=== PATIENT | female | born 1955 | race Hispanic/Latino ===

== ENCOUNTER 2017-09-30 13:10 | Inpatient (IN) | payer BC ==
--- NOTE | 2017-09-30 14:37 | ED PDOC ---
Arrival/HPI - General Chief Complaint: Weakness/Neurological Deficit Time Seen by Provider: 09/30/17 13:53 Historian: Patient - History of Present Illness Narrative History of Present Illness (Text): 09/30/17 14:33 Patient is a 62 yo female, family hx of cva/tia, presents to the Emergency Department after experiencing "leg weakness" while at work on Sunday TWO DAYS AGO, with "feeling like I was going to fall". States that she awoke Sunday morning "feeling fine", but while at work later in the day she acutely felt unsteady. No associated headache or visual symptoms, no chest pain or shortness of breath, no dizziness, no falls or injury. When she went home she started to develop numbness and weakness to her right hand. This numbness and weakness has been persistent all day yesterday until this morning. Symptoms for two days. She states she feels weaker in the right arm. Continues to deny headache, denies diplopia or blurred vision, denies neck pain or leg pain. Denies back pain or incontinence of urine or stool. Past Medical History - Infectious Disease Hx of Infectious Diseases: None - Reproductive Menopause: Yes - Cardiac Hx Hypertension: Yes - Psychiatric Hx Substance Use: No - Surgical History Hx Orthopedic Surgery: Yes - Anesthesia Hx Anesthesia: Yes Hx Anesthesia Reactions: No Family/Social History Family/Social History: CVA/TIA Smoking Status: Current Some Days Smoker Hx Alcohol Use: Yes Frequency of alcohol use: Daily Hx Substance Use: No Allergies/Home Meds Allergies/Adverse Reactions: Allergies Penicillins Allergy (Verified 09/30/17 13:47) RASH Home Medications: Home Meds Medication Instructions Recorded Confirmed Lisinopril [Zestril] 20 mg PO DAILY 09/30/17 09/30/17 Ranitidine HCl [Zantac] 150 mg PO DAILY 09/30/17 09/30/17 Simvastatin [Zocor] 10 mg PO DAILY 09/30/17 09/30/17 Review of Systems - Review of Systems Constitutional: Fatigue. absent: Fevers Eyes: absent: Vision Changes, Photophobia, Eye Pain ENT: absent: Hearing Changes Respiratory: absent: SOB, Cough Cardiovascular: absent: Chest Pain, Palpitations, Edema Gastrointestinal: absent: Abdominal Pain Genitourinary Female: absent: Dysuria, Frequency Musculoskeletal: absent: Back Pain, Neck Pain Skin: absent: Rash Neurological: Focal Weakness, Gait Changes, Disequilibrium. absent: Headache, Dizziness, Speech Changes, Facial Droop, Seizure Endocrine: absent: Polyuria Hemo/Lymphatic: absent: Easy Bleeding Psychiatric: absent: Depression Physical Exam Vital Signs Reviewed: Yes Vital Signs Temp Pulse Resp BP Pulse Ox 09/30/17 17:33 72 18 174/93 H 98 09/30/17 16:48 81 18 169/92 H 98 09/30/17 16:26 72 181/101 H 09/30/17 15:37 72 18 175/99 H 98 09/30/17 13:41 98.8 F 75 18 184/94 H 98 Temperature: Afebrile Appearance: Positive for: Uncomfortable Pain Distress: None Mental Status: Positive for: Alert and Oriented X 3 - Systems Exam Head: Present: Atraumatic Pupils: Present: PERRL Extroacular Muscles: Present: EOMI Mouth: Present: Moist Mucous Membranes Pharnyx: No: ERYTHEMA Neck: Present: Normal Range of Motion. No: Meningeal Signs, MIDLINE TENDERNESS Respiratory/Chest: Present: Clear to Auscultation. No: Respiratory Distress Cardiovascular: Present: Regular Rate and Rhythm, Murmurs Abdomen: No: Tenderness, Distention Back: No: CVA Tenderness, Midline Tenderness Upper Extremity: No: Cyanosis, Edema Lower Extremity: No: Edema, CALF TENDERNESS Neurological: Present: Other (dysmetria noted, no pronator drift in arms or legs , no facial droop, weaker grasp right hand when compared to left) Skin: Present: Warm Psychiatric: Present: Alert, Oriented x 3, Normal Insight, Normal Concentration , Normal Affect, Normal Mood Medical Decision Making ED Course and Treatment: Patient presents to ED with at least two day hx of symptoms. On exam, mild weakness to right grasp and some dysmetria. Sister is present states that her speech appears baseline currently. On exam there is some dysmetria. She denies headache or fever or visual symptoms. No syncope. No chest pain or shortness of breath. ASA ordered. No facial droop or slurred speech noted on re-exam. CT head reviewed, no bleeding, ? old lacunes. BP stable on re-evaluation. No arrhythmias noted on monitor. Denies chest pain or shortness of breath with serial exams. No obvious infiltrate on cxr. Radiology reading reviewed. PMD Dr. Zuniga notified, will consult on-call neurology. I discussed case with Dr. Lindquist, plan to admit, for serial neuro exams, MRI/MRA. Treatment plan reviewed with patient and family. Care turned over to admitting PMD at 1900. Patient not a tpa candidate as symptoms mild and present for over two days. No change in neuro exam on re-evaluation. No neck pain elicited on exam. No carotid bruits noted. - Lab Interpretations Lab Results: 09/30/17 15:00 09/30/17 15:00 Lab Results 09/30/17 16:15: Blood Type Confirm O POSITIVE 09/30/17 15:00: Blood Type O POSITIVE, Antibody Screen Negative, BBK History Checked No verified bt 09/30/17 15:00: Sodium 138, Potassium 4.2, Chloride 100, Carbon Dioxide 27, Anion Gap 16, BUN 16, Creatinine 1.0, Est GFR ( Amer) > 60, Est GFR (Non- Af Amer) 57, Random Glucose 91, Calcium 10.2, Total Bilirubin 0.6, AST 33, ALT 39, Alkaline Phosphatase 96, Troponin I < 0.01, Total Protein 7.4, Albumin 4.3, Globulin 3.1, Albumin/Globulin Ratio 1.4, Triglycerides 163 H, Cholesterol 187, LDL Cholesterol Direct 117, HDL Cholesterol 47 09/30/17 15:00: PT 11.1, INR 0.97, APTT 28.6 09/30/17 15:00: WBC 7.8, RBC 4.83, Hgb 16.2 H, Hct 49.0 H, MCV 101.4, MCH 33.5, MCHC 33.1, RDW 12.4, Plt Count 159, MPV 10.1, Gran % 63.0, Lymph % (Auto) 29.5, [place] % (Auto) 6.1 H, Eos % (Auto) 1.0 L, Baso % (Auto) 0.4, Gran # 4.93, Lymph # (Auto) 2.3, [place] # (Auto) 0.5, Eos # (Auto) 0.8 H, Baso # (Auto) 0.40, Neutrophils % (Manual) TEST NOT PERFORMED, Lymphocytes % (Manual) TEST NOT PERFORMED, Monocytes % (Manual) TEST NOT PERFORMED - RAD Interpretation Radiology Orders: 09/30/17 14:20 HEAD W/O CONTRAST [CT] Stat CHEST PORTABLE [RAD] Stat - Medication Orders Current Medication Orders: Discontinued Medications Aspirin (Aspirin) 325 mg PO STAT ONE Stop: 09/30/17 15:08 Last Admin: 09/30/17 16:26 Dose: 325 mg Clonidine HCl (Catapres) 0.1 mg PO ONCE STA Stop: 09/30/17 15:54 Last Admin: 09/30/17 16:26 Dose: 0.1 mg MAR Pulse and Blood Pressure Document 09/30/17 16:26 EQ (Rec: 09/30/17 16:26 EQ [facility] [place]-[id number]) Pulse Pulse Rate (60-90 beats/min) 72 Blood Pressure Blood Pressure (100/60-150/90 mm Hg) 181/101 NIHSS Scale ([place]) Time Performed: 14:35 - How Severe is the Stoke Baseline Level of Consciousness: 0=Alert LOC to Questions: 0=Both comments correct LOC to commands: 0=Obeys both correctly Best Gaze: 0=Normal Visual: 0=No visual loss Facial: 0=Normal Motor Arm - Left: 0=No drift Motor Arm - Right: 1=Drift noted before 10 sec Motor Leg - Left: 0=No drift Motor Leg - Right: 0=No drift Limb Ataxia: 1=Present Upper or Lower Sensory: 0=Normal Best Language: 0=No aphasia Dysarthia: 1=Mild to moderate slurring Extinction & Inattention (Neglect): 0=Normal, no object Score: 3 Risk Level: Minor Stroke Risk rTPA Inclusion/Exclusion - Refusal of Treatment Patient Refused Treatment: No - Inclusion Criteria for Altepase Patient is 18 years or Older: Yes The Clinical Diagnosis of Ischemic Stroke That is Causing a Potentially Disabling Neurological Deficit: Yes Time of Onset is Well Established to be Less Than 270 Minute Before Treatment Would Begin: No Risk/Benefit Discussed With Patient/Family Member Present: Yes - Warning to TPA With Conditions Condition: Stroke Serevity Too Mild Disposition/Present on Arrival - Present on Arrival Any Indicators Present on Arrival: No History of DVT/PE: No History of Uncontrolled Diabetes: No Urinary Catheter: No History of Decub. Ulcer: No History Surgical Site Infection Following: None - Disposition Have Diagnosis and Disposition been Completed?: Yes Diagnosis: CVA (cerebral vascular accident), Right hand weakness, Gait disturbance Disposition: HOSPITALIZED Disposition Time: 17:00 Patient Plan: Admission, Telemetry Patient Problems: Current Active Problems Problem Status Onset CVA (cerebral vascular accident) Acute Gait disturbance Acute Right hand weakness Acute Condition: SERIOUS
--- NOTE | 2017-09-30 14:45 | CT ---
PROCEDURE: CT HEAD WITHOUT CONTRAST. HISTORY: right sided weakness, gait disturbance COMPARISON: None available. TECHNIQUE: Axial computed tomography images were obtained through the head/brain without intravenous contrast. Radiation dose: Total exam DLP = 934.8 mGy-cm. This CT exam was performed using one or more of the following dose reduction techniques: Automated exposure control, adjustment of the mA and/or kV according to patient size, and/or use of iterative reconstruction technique. FINDINGS: HEMORRHAGE: No acute parenchymal, subarachnoid nor extra-axial hemorrhage. BRAIN: Mild diffuse/confluent chronic periventricular white matter ischemic changes with age indeterminate small ischemic changes scattered about the deep and subcortical white matter both cerebral hemispheres. There also appear to be a few small chronic bilateral basal nuclei lacunar type infarcts. Note that the possibility of a small hyperacute infarct cannot be excluded. No obvious parenchymal nor extra-axial masses or collections seen on this noncontrast study Mild vascular calcifications VENTRICLES: No obstructive hydrocephalus. CALVARIUM: There are no acute calvarial fractures. PARANASAL SINUSES: Unremarkable as visualized. No significant inflammatory changes. MASTOID AIR CELLS: Unremarkable as visualized. No inflammatory changes. OTHER FINDINGS: None. IMPRESSION: No acute intracranial hemorrhage. Mild chronic periventricular white matter ischemic changes with scattered deep and subcortical age-indeterminate ischemic changes. There may also be a few scattered tiny chronic bilateral basal nuclei lacunar type infarcts.
[2017-09-30 15:27] LABS: HEMOGLOBIN 16.2 g/dL (12.0-16.0); RBC 4.83 10^6/uL (3.5-6.1); WHITE BLOOD COUNT 7.8 10^3/ul (4.5-11.0)
[2017-09-30 15:28] LABS: MEAN CELL VOLUME 101.4 fl (80.0-105.0); MEAN CORPUSCULAR HEMOGLOBIN 33.5 pg (25.0-35.0); MEAN CORPUSCULAR HGB CONC 33.1 g/dl (31.0-37.0); MEAN PLATELET VOLUME 10.1 fl (7.0-11.0); PLATELET COUNT 159 10^3/uL (120.0-450.0); RED CELL DISTRIBUTION WIDTH 12.4 % (11.5-14.5)
[2017-09-30 15:32] LABS: ALB/GLOB RATIO 1.4 (1.1-1.8); ALBUMIN 4.3 g/dL (3.0-4.8); ALT/SGPT 39 U/L (7-56); AST/SGOT 33 U/L (14-36); BLOOD UREA NITROGEN 16 mg/dL (7-21); CALCIUM 10.2 mg/dL (8.4-10.5); GFR AFRICAN-AMERICAN > 60; GFR NON-AFRICAN AMERICAN 57; HDL CHOLESTEROL 47 mg/dL (29-60); LYMPH % 29.5 % (22.0-35.0)
[2017-09-30 15:33] LABS: BASO % 0.4 % (0.0-3.0); MONO % 6.1 % (1.0-6.0)
[2017-09-30 15:34] LABS: EOS # 0.8 (0.0-0.7); GRAN # 4.93 (1.4-6.5); LYMPH # 2.3 (1.2-3.4); MONO # 0.5 (0.1-0.6)
[2017-09-30 15:40] LABS: INR 0.97 (0.93-1.08); PARTIAL THROMBOPLASTIN TIME 28.6 Seconds (25.1-36.5); PROTHROMBIN TIME 11.1 SECONDS (9.4-12.5)
[2017-09-30 15:43] LABS: LDL CHOLESTEROL 117 mg/dL (0-129)
[2017-09-30 15:46] LABS: TROPONIN I < 0.01 ng/mL
--- NOTE | 2017-09-30 16:37 | RAD ---
HISTORY: Code Stroke COMPARISON: No prior. FINDINGS: LUNGS: Minor left basilar atelectasis or scarring. . PLEURA: No significant pleural effusion identified, no pneumothorax apparent. CARDIOVASCULAR: Normal. OSSEOUS STRUCTURES: No significant abnormalities. VISUALIZED UPPER ABDOMEN: Normal. OTHER FINDINGS: None. IMPRESSION: Minor left basilar atelectasis or scarring.
[2017-09-30 21:42] VITALS: BMI 21.6
[2017-10-01 05:48] VITALS: O2SAT 96
--- NOTE | 2017-10-01 06:53 | CP.PCM.PN ---
Subjective - Date & Time of Evaluation Date of Evaluation: 10/01/17 Time of Evaluation: 06:51 - Subjective Subjective: Draft. Monitor showed rhythm in and out of NSR and junctional rhythm. Patient is asymptomatic. Trop <0.01. Rx, Observation. Objective - Vital Signs/Intake and Output Vital Signs (last 24 hours): Temp Pulse Resp BP Pulse Ox 98 F 69 20 122/72 96 10/01/17 05:46 10/01/17 05:46 10/01/17 05:46 10/01/17 05:46 10/01/17 05:46 Intake and Output: 09/30/17 10/01/17 18:59 06:59 Intake Total 360 Output Total 2 Balance 358 - Medications Medications: Current Medications Aspirin (Ecotrin) 81 mg PO DAILY ANNABELLE Atorvastatin Calcium (Lipitor) 10 mg PO DIN ANNABELLE Famotidine (Pepcid) 20 mg PO HS ANNABELLE Lisinopril (Zestril) 20 mg PO DAILY ANNABELLE - Labs Labs: PT 11.1 SECONDS (9.4-12.5) 09/30/17 15:00 INR 0.97 (0.93-1.08) 09/30/17 15:00 APTT 28.6 Seconds (25.1-36.5) 09/30/17 15:00
[2017-10-01 07:11] LABS: ALB/GLOB RATIO 1.2 (1.1-1.8); ALBUMIN 3.5 g/dL (3.0-4.8); ALT/SGPT 39 U/L (7-56); AST/SGOT 25 U/L (14-36); BLOOD UREA NITROGEN 16 mg/dL (7-21); CALCIUM 9.9 mg/dL (8.4-10.5); GFR AFRICAN-AMERICAN > 60; GFR NON-AFRICAN AMERICAN > 60; HDL CHOLESTEROL 39 mg/dL (29-60)
[2017-10-01 07:20] LABS: LDL CHOLESTEROL 105 mg/dL (0-129)
--- NOTE | 2017-10-01 09:25 | MRI ---
PROCEDURE: MRI BRAIN WITHOUT CONTRAST HISTORY: cva COMPARISON: None. TECHNIQUE: Multiplanar, multisequence MR images of the brain were obtained without intravenous contrast enhancement. FINDINGS: HEMORRHAGE: None DWI: No evidence of an acute or early subacute infarction. BRAIN PARENCHYMA: No mass effect or edema. Numerous foci of white matter signal abnormality in the bailon radiata, centrum semiovale, frontal subcortical white matter as well as along the corpus callosum. VENTRICLES: Unremarkable. No hydrocephalus. CRANIUM: Unremarkable. ORBITS: Grossly unremarkable. PARANASAL SINUSES/MASTOIDS: Clear VASCULAR SYSTEM: Skull base flow voids intact. OTHER FINDINGS: None. IMPRESSION: Numerous foci of white matter signal abnormality in the bailon radiata, centrum semiovale, frontal subcortical white matter as well as along the corpus callosum. Findings are nonspecific but could represent a primary demyelinating process such as multiple sclerosis. Chronic microvascular ischemic disease is also considered. Please correlate clinically.
--- NOTE | 2017-10-01 09:56 | CARD ---
APPROVED REPORT EKG Measurement Heart [id number] <Conclusion> Normal sinus rhythm Normal ECG
--- NOTE | 2017-10-01 10:04 | HP ---
HISTORY OF PRESENT ILLNESS: The patient is 62-year-old known to me from office practice, came to Emergency Room with lower leg weakness that started 2 days ago. She stated her left leg was feeling as if she was going to fall. She was not able to put the pressure and has been feeling unsteady since Sunday. Denies any upper respiratory symptoms. No nausea or vomiting. No fever. No chills. No chest pain. No shortness of breath. The patient stated when she went home in the evening of Sunday, she started to have some numbness and weakness of her right hand. Did notice some difficulty for any words. PAST MEDICAL HISTORY: Significant for hypertension, hyperlipidemia, and active smoker. ALLERGIES: SHE IS ALLERGIC TO PENICILLIN. MEDICATIONS AT HOME: She is on simvastatin 10 mg daily, Zantac 150 twice a day, lisinopril 20 mg daily. SOCIAL HISTORY: She is a heavy smoker. She does socially drink. LABORATORY DATA: Recently had blood work done that showed abnormal LFTs probably secondary to alcohol use. PHYSICAL EXAMINATION GENERAL: She is awake, alert, oriented and able to communicate. VITAL SIGNS: She is afebrile. Pulse 81, respirations 18, blood pressure 151/84. LUNGS: Bilateral fair air flow. No rhonchi or crackles. HEART: S1 and S2 audible. ABDOMEN: Soft, nontender. No rebound. No guarding. NEUROLOGIC: She is awake and alert, able to communicate slightly with right upper and lower extremity weakness. Otherwise, she is able to move all extremities. LABORATORY DATA: WBC 7.8, hemoglobin 16, hematocrit 49, platelets of 159,000. PT 11.1, INR 0.97. Chemistry: Sodium 138, potassium 4.2, chloride 100, CO2 27, BUN 16, creatinine 1.0, blood sugar of 180. Triglycerides 153. CT scan of the head shows no acute intracranial hemorrhage. Mild chronic periventricular white matter ischemia, scattered deep and subcortical, age indeterminate ischemic changes. ASSESSMENT AND PLAN 1. Right-sided numbness, we will rule out cerebrovascular accident versus cervical radiculopathy. 2. Hypertension. 3. Active smoker. 4. Hyperlipidemia. PLAN: I will order MRI of the brain. I will order for carotid Doppler and also, order for an echocardiogram and start her antihypertensive, statin and aspirin. Follow up . Inderjit Zuniga MD [facility] # [id number]
[2017-10-01 15:00] VITALS: PULSE 70
--- NOTE | 2017-10-01 15:43 | CON ---
DATE: 10/01/2017 NEUROLOGY CONSULT CHIEF COMPLAINT: Right-sided weakness and unstable on the feet. HISTORY OF PRESENT ILLNESS: This is a 62-year-old woman who is a daily smoker with history of hypertension and hyperlipidemia, who presented to the hospital with poor balance and right-sided numbness and weakness, more weakness on the right hand/arm and has some dysarthria. She underwent a CAT scan of the head that showed no acute intracranial abnormalities, but her MRI of the brain was done which was apparently read as chronic ischemic changes with no acute infarct, but upon my read of the image, I saw that she had a mild left MCA territory infarct, small in nature which is secondary to diffuse atherosclerotic disease, which corresponds to her underlying dysarthria and right-sided numbness and right upper extremity weakness. She is an active smoker. She was previously on baby aspirin. An A1c was 5.7. LDL was 117. Total cholesterol was 187. Triglycerides 163. I discussed with the primary care physician in regards that she has an acute infarct in the left MCA territory. PAST MEDICAL HISTORY: Hypertension, hyperlipidemia, and active smoker. ALLERGIES: ALLERGIC TO PENICILLIN. SOCIAL HISTORY: She is a heavy smoker, socially drinks. No illicit drug use. MEDICATION: Reviewed by nurse's reconciliation sheet. REVIEW OF SYSTEMS: A 14-point review of systems is negative except as in the HPI. LABORATORY DATA: Sodium is 138, potassium 4.1, chloride 105, carbon dioxide 25, BUN of 16, creatinine 0.9, random glucose 83. Triglycerides 163, cholesterol 187, LDL is 117. A1c 5.7. PHYSICAL EXAMINATION: VITAL SIGNS: Temperature 97.2, pulse rate 74, blood pressure 150/84, respiratory rate of 20, oxygen saturation 96% by room air. GENERAL: The patient is sitting up in the bed, in no acute distress. HEENT: Head is atraumatic and normocephalic. PERRLA. Extraocular muscles are intact. NECK: Supple. No JVD. No adenopathy noted. LUNGS: Clear to auscultation. No adventitious sounds. HEART: S1, S2. Normal rate and rhythm. No murmurs, rubs, or gallops. ABDOMEN: Soft, nontender, nondistended. Bowel sounds present. EXTREMITIES: No clubbing. No cyanosis. Peripheral pulses are 2+ felt bilaterally. NEUROLOGIC: The patient is alert and oriented to person, place, month, and year. Speech has mild dysarthria but no aphasia. Cranial nerves II through XII are intact. Motor: Mild right finger tap weakness when compared to the left as well as 5-/5 right-sided weakness when compared to the left side. Sensory: Light touch, pinprick, proprioception, and vibration intact. DTRs are 2+ throughout. Gait is slightly wide based. She has slow finger tap on the right when compared to the left. ASSESSMENT AND PLAN: This is a 62-year-old woman, heavy smoker, history of hypertension, dyslipidemia, came in with some mild dysarthria and right-sided weakness, especially in the upper extremity, fond to have an acute left middle cerebral artery territory infarct, which is likely secondary to diffuse atherosclerotic disease given her risk factors of hypertension, smoking, and dyslipidemia. At this time, we recommend: 1. Place her on aspirin 81, Plavix 75, and atorvastatin of 80 mg for stroke prevention. 2. Carotid Doppler and awaiting the result. 3. PT and OT eval. 4. Counseled on smoking cessation to reduce one cigarette per day in order to quit. 5. Echocardiogram and continue current present medical management. Thanks for this consult. Brando Nash MD
--- NOTE | 2017-10-01 16:33 | US ---
PROCEDURE: Bilateral carotid artery duplex ultrasound HISTORY: Carotid stenosis syncope PHYSICIAN(S): Son Oconnell MD. TECHNIQUE: Duplex sonography and color-flow Doppler were used to evaluate the carotid bifurcations and limited segments of the vertebral arteries bilaterally. FINDINGS: There is mild smooth heterogeneous plaque noted at the carotid bifurcations bilaterally. The peak systolic velocity in the proximal right internal carotid artery is 68 cm/sec. This corresponds to a 20 to 39% proximal right ICA stenosis. Normal systolic velocities are noted in the proximal right external carotid artery. There is antegrade flow in the right vertebral artery. The peak systolic velocity in the proximal left internal carotid artery is 84 cm/sec. This corresponds to a 20 to 39% proximal left ICA stenosis. Normal systolic velocities are noted in the proximal left external carotid artery. There is antegrade flow in the left vertebral artery. IMPRESSION: 1. Bilateral 20-39% proximal ICA stenoses. 2. Antegrade flow in both vertebral arteries.
[2017-10-01 17:58] VITALS: BP 155/99; RESP 16; TEMP 98.4
--- NOTE | 2017-10-01 22:21 | PN ---
DATE: SUBJECTIVE: The patient is a 62-year-old, seen and examined. Patient states she was having intermittent right-sided numbness with leg weakness as if she is going to give in and she will fall, but yesterday prior to coming, it got worse, so she came to ER. PHYSICAL EXAMINATION: GENERAL: She is awake and alert, able to communicate. VITAL SIGNS: She is afebrile, pulse 73, respirations 20, blood pressure 143/99. LUNGS: Bilateral fair airflow. No rhonchi or crackle. HEART: S1 and S2 audible. ABDOMEN: Soft and nontender. No rebound, no guarding. NEUROLOGIC: She is awake, alert, oriented, able to communicate. She has very subtle right upper extremity weakness. Otherwise, she is able to ambulate. LABORATORY DATA: MRI of the brain done today shows numerous foci of the white matter signal abnormality in the bailon radiata, frontal subcortical white matter along corpus callosum. According to neurologist report, the patient was found to have acute left middle cerebral artery infarct secondary to atherosclerosis. Carotid Doppler shows bilateral 20-39% ICA stenosis. ASSESSMENT: 1. Left middle cerebral artery territory cerebrovascular accident with right-sided weakness and numbness. 2. Hyperlipidemia. 3. Hypertension. 4. Active smoker. PLAN: The patient will get PT, OT evaluation. We will continue her on aspirin. Will be given Plavix. Continue her on Lipitor. Discussed with neurologist. The patient wants to go home. We will monitor another 24 hours and possible discharge in a.m. Inderjit Zuniga MD
--- NOTE | 2017-10-02 14:12 | DS ---
ADDENDUM The patient is 62 years old who came with left upper extremity weakness and some weakness in her right lower extremity. Had MRI done that showed left middle cerebral territory CVA, doing well. Carotid Doppler is negative. Seen by neurologist. The patient is being discharged today. She will be discharged on statins 20 mg daily. She will be given aspirin 325 mg daily for a month and then, she will be also given Plavix 75 mg daily. She will resume her lisinopril and famotidine as needed and follow up in a week. Inderjit Zuniga MD
== END 2017-10-01 19:27 | disposition home or self-care (01) | DRG 65 ==
LOC: ED 13:10 → ERH 18:28 → 2RNO 20:27
PROVIDERS: ADMIT Internal Medicine; ATTEND Internal Medicine
DX: I63.512 Cerebral infarction due to unspecified occlusion or stenosis of left middle cerebral artery (principal); G81.91 Hemiplegia, unspecified affecting right dominant side; R29.703 NIHSS score 3; E78.5 Hyperlipidemia, unspecified; I10 Essential (primary) hypertension; F17.210 Nicotine dependence, cigarettes, uncomplicated; Z88.0 Allergy status to penicillin

== ENCOUNTER 2018-03-07 10:58 | Observation (INO) | payer BC ==
[2018-03-07 11:23] VITALS: BMI 21.1
--- NOTE | 2018-03-07 11:25 | ED PDOC ---
Arrival/HPI - General Time Seen by Provider: 03/07/18 11:12 Historian: Patient - History of Present Illness Narrative History of Present Illness (Text): 03/07/18 11:21 A 62 year old female, whose past medical history includes stroke with no residual deficits, presents to the emergency department for further evaluation s /p a syncopal episode. Patient states that she was at work this morning when she began to feel unwell and diaphoretic. She notes that she had several episodes of diarrhea at work and was taken home by her sister. At home, the patient experienced a witnessed syncopal episode which lasted a few seconds as per the patient's sister. The patient also notes left leg swelling. The patient denies fevers, chills, headache, dizziness, sore throat, cough, chest pain, shortness of breath, dyspnea on exertion, abdominal pain, vomiting, back pain, urinary changes or any other complaint. PMD: Dr. Zuniga Time/Duration: Prior to Arrival Symptom Onset: Sudden Symptom Course: Improving Activities at Onset: Rest, Light Context: Home, Work Past Medical History - Provider Review Nursing Documentation Reviewed: Yes - Infectious Disease Hx of Infectious Diseases: None - Cardiac Hx Hypertension: Yes - Musculoskeletal/Rheumatological Hx Falls: No - Psychiatric Hx Substance Use: No - Surgical History Hx Orthopedic Surgery: Yes - Anesthesia Hx Anesthesia: Yes Hx Anesthesia Reactions: No Family/Social History - Physician Review Nursing Documentation Reviewed: Yes Family/Social History: No Known Family HX Smoking Status: Current Some Days Smoker Hx Alcohol Use: Yes Hx Substance Use: No Allergies/Home Meds Allergies/Adverse Reactions: Allergies Penicillins Allergy (Verified 03/07/18 11:15) RASH Home Medications: Home Meds Medication Instructions Recorded Confirmed Lisinopril [Zestril] 20 mg PO DAILY 09/30/17 03/07/18 Ranitidine HCl [Zantac] 150 mg PO DAILY 09/30/17 03/07/18 Simvastatin [Zocor] 10 mg PO DAILY 09/30/17 03/07/18 Review of Systems - Physician Review All systems were reviewed & negative as marked: Yes - Review of Systems Constitutional: absent: Fevers, Night Sweats Respiratory: absent: SOB, Cough Cardiovascular: Syncope. absent: Chest Pain, CHANDRA Gastrointestinal: Diarrhea. absent: Abdominal Pain, Nausea, Vomiting Genitourinary Female: absent: Urine Output Changes Musculoskeletal: absent: Back Pain Neurological: absent: Headache, Dizziness Endocrine: Diaphoresis Physical Exam Vital Signs Reviewed: Yes Vital Signs Temp Pulse Resp BP Pulse Ox 03/07/18 13:14 65 18 99/54 L 96 03/07/18 12:32 82 18 84/51 L 95 03/07/18 11:11 97.9 F 88 18 117/68 100 Temperature: Afebrile Blood Pressure: Normal Pulse: Regular Respiratory Rate: Normal Appearance: Positive for: Well-Appearing, Non-Toxic, Comfortable Pain Distress: None Mental Status: Positive for: Alert and Oriented X 3 - Systems Exam Head: Present: Atraumatic, Normocephalic Pupils: Present: PERRL Extroacular Muscles: Present: EOMI Conjunctiva: Present: Normal Mouth: Present: Moist Mucous Membranes Neck: Present: Normal Range of Motion Respiratory/Chest: Present: Clear to Auscultation, Good Air Exchange. No: Respiratory Distress, Accessory Muscle Use Cardiovascular: Present: Regular Rate and Rhythm, Normal S1, S2. No: Murmurs Abdomen: No: Tenderness, Distention, Peritoneal Signs Back: Present: Normal Inspection Upper Extremity: Present: Normal Inspection. No: Cyanosis, Edema Lower Extremity: Present: Swelling (Left leg/calf swelling) Neurological: Present: GCS=15, CN II-XII Intact, Speech Normal Skin: Present: Warm, Dry, Normal Color. No: Rashes Psychiatric: Present: Alert, Oriented x 3, Normal Insight, Normal Concentration Medical Decision Making ED Course and Treatment: 03/07/18 11:26 Impression: A 62 year old female presents to the emergency room s/p syncopal episode at home this morning. Differential Diagnosis included but are not limited to: electrolyte abnormality vs. cardiac arrhythmia vs. TIA vs. DVT Plan: -- Head CT -- EKG -- Chest X-ray -- Labs -- Lower Extremity Ultrasound -- Reassess and disposition Progress Notes: 03/07/18 12:07 EKG shows NSR at 85bpm with sinus arrhythmia and new t wave flattening/ inversions in V4-v6 when compared to prior. 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 PROCEDURE: CT HEAD WITHOUT CONTRAST. Dictator : Son Petty MD Report Date : 03/07/2018 12:41:07 IMPRESSION: No intracranial mass, hemorrhage or evidence of acute infarct. Minimal chronic white matter ischemic change and small old bilateral basal ganglia lacunar infarcts. PROCEDURE: CHEST RADIOGRAPH, 1 VIEW Dictator : Son Petty MD Report Date : 03/07/2018 12:42:25 IMPRESSION: Mild pulmonary hyperinflation. Otherwise unremarkable. 03/07/18 13:53 03/07/18 11:52: Ultrasound wet read negative for dvt. Trop x 1 negative. Electrolytes grossly normal. Aspirin given in ED. Labs show leukocytosis but afebrile with no other SIRS criteria with normal cxray. UA negative. ? hemoconcentration. Case discussed in detail with Dr. Zuniga who accepts patient to her service. Dr. Merlos consulted as requested. - Lab Interpretations Lab Results: 03/07/18 12:35 03/07/18 12:35 Lab Results 03/07/18 12:35: Sodium 134, Potassium 4.3, Chloride 98, Carbon Dioxide 21, Anion Gap 19, BUN 22 H, Creatinine 1.0, Est GFR ( Amer) > 60, Est GFR ( Non-Af Amer) 57, Random Glucose 129 H, Calcium 9.5, Phosphorus 3.8, Magnesium 1.9, Total Bilirubin 0.6, AST 24, ALT 22, Alkaline Phosphatase 101, Total Creatine Kinase 43, Troponin I 0.02 D, Total Protein 7.4, Albumin 4.3, Globulin 3.1, Albumin/Globulin Ratio 1.4, Lipase 139 03/07/18 12:35: WBC 16.5 H D, RBC 4.94, Hgb 16.3 H, Hct 46.1, MCV 93.3 D, MCH 33.0, MCHC 35.4, RDW 13.9, Plt Count 205, MPV 9.5, Gran % 81.6 H, Lymph % (Auto ) 13.2 L, [place] % (Auto) 4.5, Eos % (Auto) 0.5 L, Baso % (Auto) 0.2, Gran # 13.47 H, Lymph # (Auto) 2.2, [place] # (Auto) 0.8 H, Eos # (Auto) 0.1, Baso # (Auto ) 0.04 I have reviewed the lab results: Yes - RAD Interpretation Radiology Orders: 03/07/18 11:18 CHEST ONE VIEW [RAD] Stat 03/07/18 11:19 HEAD W/O CONTRAST [CT] Stat DUPLEX LOWER EXTRM VEIN LEFT [US] Stat - EKG Interpretation Interpreted by ED Physician: Yes Type: 12 lead EKG - Medication Orders Current Medication Orders: Atorvastatin Calcium (Lipitor) 10 mg PO DAILY ANNABELLE Clopidogrel Bisulfate (Plavix) 75 mg PO DAILY [facility] Famotidine (Pepcid) 20 mg PO DAILY [facility] Dextrose/Sodium Chloride (Dextrose 5%/0.45% Ns 1000 Ml) 1,000 mls @ 75 mls/hr IV .[id number] [facility] Lisinopril (Zestril) 20 mg PO DAILY [facility] Discontinued Medications Aspirin (Aspirin Chewable) 324 mg PO STAT STA Stop: 03/07/18 12:41 Sodium Chloride (Sodium Chloride 0.9%) 1,000 mls @ 999 mls/hr IV .[id number] STA Stop: 03/07/18 13:46 - Scribe Statement The provider has reviewed the documentation as recorded by the Thierry Wick Provider Scribe Attestation: All medical record entries made by the Scribe were at my direction and personally dictated by me. I have reviewed the chart and agree that the record accurately reflects my personal performance of the history, physical exam, medical decision making, and the department course for this patient. I have also personally directed, reviewed, and agree with the discharge instructions and disposition. Disposition/Present on Arrival - Present on Arrival Any Indicators Present on Arrival: No History of DVT/PE: No History of Uncontrolled Diabetes: No Urinary Catheter: No History Surgical Site Infection Following: None - Disposition Have Diagnosis and Disposition been Completed?: Yes Diagnosis: Leukocytosis, Diarrhea, Syncope, Acute electrocardiogram changes Disposition: HOSPITALIZED Disposition Time: 13:11 Patient Plan: Observation Patient Problems: Current Active Problems Problem Status Onset Leukocytosis Acute Diarrhea Acute Syncope Acute Acute electrocardiogram changes Acute Condition: FAIR
--- NOTE | 2018-03-07 12:42 | CT ---
Date of service: 03/07/2018 PROCEDURE: CT HEAD WITHOUT CONTRAST. HISTORY: dizziness, syncope COMPARISON: 09/30/2017. TECHNIQUE: Axial computed tomography images were obtained through the head/brain without intravenous contrast. Radiation dose: Total exam DLP = 1007.79 mGy-cm. This CT exam was performed using one or more of the following dose reduction techniques: Automated exposure control, adjustment of the mA and/or kV according to patient size, and/or use of iterative reconstruction technique. FINDINGS: HEMORRHAGE: No intracranial hemorrhage. BRAIN: No mass effect or edema. Mild chronic periventricular white matter ischemic change. Bilateral small basal ganglia lacunar infarcts. No evidence of acute infarct. VENTRICLES: Unremarkable. No hydrocephalus. CALVARIUM: Unremarkable. PARANASAL SINUSES: Unremarkable as visualized. No significant inflammatory changes. MASTOID AIR CELLS: Unremarkable as visualized. No inflammatory changes. OTHER FINDINGS: None. IMPRESSION: No intracranial mass, hemorrhage or evidence of acute infarct. Minimal chronic white matter ischemic change and small old bilateral basal ganglia lacunar infarcts.
--- NOTE | 2018-03-07 12:44 | RAD ---
Date of service: 03/07/2018 PROCEDURE: CHEST RADIOGRAPH, 1 VIEW HISTORY: syncope COMPARISON: 09/30/2017 FINDINGS: LUNGS: No infiltrate. Mild pulmonary hyperinflation. This may reflect reactive airways disease or emphysema. PLEURA: No pneumothorax or pleural fluid seen. CARDIOVASCULAR: Normal. OSSEOUS STRUCTURES: No significant abnormalities. VISUALIZED UPPER ABDOMEN: Normal. OTHER FINDINGS: None. IMPRESSION: Mild pulmonary hyperinflation. Otherwise unremarkable.
[2018-03-07] MEDS ORDERED: Sodium Chloride 0.9% 1,000 ML IV STA (12:46)
[2018-03-07 12:49] LABS: BASO # 0.04 K/mm3 (0.0-2.0); BASO % 0.2 % (0.0-3.0); EOS # 0.1 (0.0-0.7); EOS % 0.5 % (1.5-5.0); GRAN # 13.47 (1.4-6.5); GRAN % 81.6 % (50.0-68.0); HEMOGLOBIN 16.3 g/dL (12.0-16.0); LYMPH # 2.2 (1.2-3.4); LYMPH % 13.2 % (22.0-35.0); MEAN CELL VOLUME 93.3 fl (80.0-105.0); MEAN CORPUSCULAR HGB CONC 35.4 g/dl (31.0-37.0); MEAN PLATELET VOLUME 9.5 fl (7.0-11.0); MONO # 0.8 (0.1-0.6); MONO % 4.5 % (1.0-6.0); RBC 4.94 10^6/uL (3.5-6.1); RED CELL DISTRIBUTION WIDTH 13.9 % (11.5-14.5); WHITE BLOOD COUNT 16.5 10^3/ul (4.5-11.0)
[2018-03-07 13:08] LABS: BLOOD UREA NITROGEN 22 mg/dL (7-21); CALCIUM 9.5 mg/dL (8.4-10.5); GFR AFRICAN-AMERICAN > 60; GFR NON-AFRICAN AMERICAN 57
[2018-03-07 13:09] LABS: ALB/GLOB RATIO 1.4 (1.1-1.8); ALBUMIN 4.3 g/dL (3.0-4.8); ALT/SGPT 22 U/L (7-56); AST/SGOT 24 U/L (14-36); LIPASE 139 U/L (23-300); TROPONIN I 0.02 ng/mL
[2018-03-07 14:11] LABS: URINE BILIRUBIN NEGATIVE (NEGATIVE); URINE BLOOD NEGATIVE (NEGATIVE); URINE GLUCOSE (UA) NEGATIVE (NEGATIVE); URINE LEUKOCYTE ESTERASE NEGATIVE Leu/uL (NEGATIVE); URINE PROTEIN NEGATIVE mg/dL (<30 mg/dL); URINE UROBILINOGEN 0.2 E.U./dL (<1 E.U./dL)
[2018-03-07 14:13] LABS: URINE APPEARANCE CLEAR (CLEAR); URINE COLOR YELLOW (YELLOW)
[2018-03-07] MEDS: Dextrose 5%/0.45% NS 1,000 ML IV SCH (14:50)
--- NOTE | 2018-03-07 18:06 | HP ---
HISTORY OF PRESENT ILLNESS: The patient is 62 years old known to me from office practice. Patient states she was at work, she started to feel weak, dizzy, lightheaded, and diaphoretic. She did not feel good. She called her friend to bring her home. She complained of having diarrhea today at work. She has couple of episodes. When she was at home waiting for her family to come, she passed out for few seconds. So family called ambulance and she was brought to emergency room. She does not have any fever or chills. No complaint of headache or dizziness. No history of nausea and does have diarrhea. No history of abdominal pain. Mild shortness of breath. No abdominal discomfort. No weakness or numbness. Does have generalized weakness. PAST MEDICAL HISTORY: Significant for; 1. Hypertension. 2. She was admitted in September, she had TIA at that point. 2. Hyperlipidemia. 3. Active smoker. 4. 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 ALLERGIES: SHE IS ALLERGIC TO PENICILLIN. MEDICATIONS AT HOME: She is on simvastatin 10 mg daily, Zantac 150 daily, lisinopril 20 mg daily, Plavix 75 daily, and aspirin 81 daily. SOCIAL HISTORY: She works and she does actively smoke. Socially drinks. REVIEW OF SYSTEMS: Significant for generalized weakness and fatigue. PHYSICAL EXAMINATION: VITAL SIGNS: She is afebrile, pulse 88, respirations 18, and blood pressure 170/68. LUNGS: Bilateral fair airflow. No rhonchi or crackles. HEART: S1, S2 audible. ABDOMEN: Soft, nontender. No rebound. No guarding. NEUROLOGIC: Patient is awake, alert, oriented, and communicative. LABORATORY DATA: Pending. She recently was admitted in 09/2017. At that point, MRI showed white matter signals along corpus callosum, all of them are nonspecific, but cannot rule out multiple sclerosis. ASSESSMENT: 1. Near syncope, rule out dehydration. 2. Hypertension. 3. Hyperlipidemia. 4. Bilateral basal nuclei lacunar infarct. PLAN: Patient is going to be in observation. Give her IV fluids. Cardiology consult and Neuro consult have been requested. Request for physical therapy. We will follow up electrolytes in a.m. Inderjit Zuniga MD
[2018-03-07] MEDS: Vancomycin 1gm in NS 250ml 1 GM/250 ML BAG IVPB SCH (18:15)
--- NOTE | 2018-03-07 18:54 | CARD ---
APPROVED REPORT Date of service: 03/07/2018 EKG Measurement Heart [id number] <Conclusion> Poor data quality, interpretation may be adversely affected Normal sinus rhythm with sinus arrhythmia Low voltage QRS Nonspecific T wave abnormality Abnormal ECG
[2018-03-07] MEDS ORDERED: Pneumococcal 23-Valent Vaccine IM ONE (19:56)
[2018-03-08 00:30] VITALS: O2SAT 98
--- NOTE | 2018-03-08 03:09 | CON ---
DATE: 03/07/2018 REASON FOR CONSULTATION: Followup syncope, cardiac evaluation. BRIEF CLINICAL HISTORY: This is a 62-year-old female with past medical history significant for hypertension, history of TIA, CVA in 09/2017, history of hip replacement last year, active tobacco abuse, active alcohol abuse, recently has a cellulitis, was on antibiotics for a week. Yesterday at work, patient had large bowel movement and about to pass out, so came to the emergency room. Denies any chest pain. Denies shortness of breath. Denies any palpitation prior to this episode. PAST MEDICAL HISTORY: Significant for TIA, CVA, hypertension, hyperlipidemia. PAST SURGICAL HISTORY: Significant for removal of left ovary and history of left hip surgery. ALLERGIES: TO PENICILLIN. SOCIAL HISTORY: Active tobacco abuse, active alcohol abuse, used to drink at least 12 to 16 can of beer every week, sometime 3 to 4 a day, sometime 6 to 10 can of beer on weekends. FAMILY HISTORY: Significant for coronary artery disease. CURRENT MEDICATIONS: Currently patient is taking simvastatin 10 mg daily, ranitidine 150 mg daily, lisinopril 20 mg daily. REVIEW OF SYSTEMS: As per HPI. Denies any chest pain, shortness of breath or any palpitation. PHYSICAL EXAMINATION: VITAL SIGNS: Temperature afebrile, heart rate 78, blood pressure 140/84. HEENT: PERRLA. Extraocular muscles intact. NECK: Supple. No carotid bruit or thyromegaly. CHEST: Clear to auscultation. HEART: S1 and S2 regular. ABDOMEN: Soft. EXTREMITIES: Clubbing and cyanosis negative. LABORATORY DATA: Blood workup as follows, WBC 16.5, hemoglobin 16.8, hematocrit 46.1, platelet count 205. Chemistry shows sodium 134, potassium 4.3, chloride 98, carbon dioxide 21, anion gap of 19, BUN 22, creatinine is 1. Troponin is 0.01. IMPRESSION: A 62-year-old female with past medical history significant for hypertension, hyperlipidemia, history of transient ischemic attack, history of atrial fibrillation during colonoscopy, since then patient has remained fairly stable. Family history is significant for coronary artery disease. Admitted also having diarrhea, also having one week of antibiotics, probably secondary to antibiotic induced diarrhea that causes near syncopal symptoms, because patient's large bowel movements feels very bad, though patient has multiple risk factors of coronary artery disease including alcohol abuse, tobacco abuse, family history of coronary artery disease. Suggest echo, lipid profile, TSH, hemoglobin A1c. Once the patient is stable, consider stress test as an outpatient. Thank you, Dr. Zuniga, for providing me the opportunity in taking care of the patient, Evy Norman. Oren Merlos MD cc: Inderjit Zuniga MD MTDD
[2018-03-08] MEDS: Vancomycin 1gm in NS 250ml 1 GM/250 ML BAG IVPB SCH ×2 (05:06→17:56)
[2018-03-08] MEDS: Dextrose 5%/0.45% NS 1,000 ML IV SCH (05:06)
[2018-03-08 06:55] LABS: BASO # 0.03 K/mm3 (0.0-2.0); BASO % 0.4 % (0.0-3.0); EOS # 0.1 (0.0-0.7); EOS % 1.7 % (1.5-5.0); GRAN # 4.65 (1.4-6.5); GRAN % 60.5 % (50.0-68.0); HEMOGLOBIN 13.4 g/dL (12.0-16.0); LYMPH # 2.5 (1.2-3.4); LYMPH % 32.1 % (22.0-35.0); MEAN CELL VOLUME 93.5 fl (80.0-105.0); MEAN CORPUSCULAR HEMOGLOBIN 32.1 pg (25.0-35.0); MEAN CORPUSCULAR HGB CONC 34.3 g/dl (31.0-37.0); MEAN PLATELET VOLUME 9.6 fl (7.0-11.0); MONO # 0.4 (0.1-0.6); MONO % 5.3 % (1.0-6.0); RBC 4.18 10^6/uL (3.5-6.1); WHITE BLOOD COUNT 7.7 10^3/ul (4.5-11.0)
[2018-03-08 07:07] LABS: ALB/GLOB RATIO 1.4 (1.1-1.8); ALBUMIN 3.6 g/dL (3.0-4.8); ALT/SGPT 30 U/L (7-56); AST/SGOT 19 U/L (14-36); BLOOD UREA NITROGEN 17 mg/dL (7-21); CALCIUM 9.1 mg/dL (8.4-10.5); GFR AFRICAN-AMERICAN > 60; GFR NON-AFRICAN AMERICAN > 60; HDL CHOLESTEROL 37 mg/dL (29-60)
[2018-03-08 07:17] LABS: LDL CHOLESTEROL 51 mg/dL (0-129)
--- NOTE | 2018-03-08 13:58 | PN ---
DATE: 03/08/2018 REASON FOR CONSULTATION AND FOLLOWUP: Syncope, cardiac evaluation. SUBJECTIVE: The patient denies any chest pain, shortness of breath, or any palpitation. PHYSICAL EXAMINATION: VITAL SIGNS: Temperature afebrile, heart rate 75, blood pressure 140/84. HEENT: PERRLA. Extraocular muscles intact. NECK: Supple. No carotid bruit or thyromegaly. CHEST: Clear to auscultation. HEART: S1 and S2, regular. ABDOMEN: Soft. EXTREMITIES: Clubbing and cyanosis negative. LABORATORY DATA: Blood workup as follows: WBC 7.7, hemoglobin 13.1, hematocrit 39.1, platelet count 182. Chemistry shows sodium 140, potassium 4.3, chloride 109, carbon dioxide 22, anion gap of 14, BUN 17, creatinine 0.8. IMPRESSION: A 62-year-old female with history of antibiotic, admitted with a large bowel movement and he had syncope and feeling very weak, cold and clammy, most likely secondary to dehydration and postural hypotension, active tobacco abuse. History of transient atrial fibrillation 6 years ago during colonoscopy. Denies any chest pain, shortness of breath, or any palpitation. Having a large bout of diarrhea. RECOMMENDATION: Echo to rule out any structural heart disease, check for orthostatic hypotension, history of cellulitis of lower extremity, on IV vancomycin. Lipid profile, TSH, hemoglobin A1c. For risk stratification, suggest a stress test as an outpatient. We will follow with you. Further recommendations will depend on the hospital course. We will get orthostatic blood pressure again today. If the orthostatics remain stable, we can discontinue telemetry. Thank you, Dr. Zuniga, for providing us the opportunity in taking of the patient, Evy Norman. Oren Merlos MD
--- NOTE | 2018-03-08 14:23 | CP.PCM.CON ---
History of Present Illness - History of Present Illness History of Present Illness: 62 year old female with PMH of CVA, HTN came in to [facility] after she developed a syncopal episode after being driven home from work, where she was feeling weak with diaphoresis. Prior to this she was feeling well. 2 weeks ago, the patient was given a week's worth of antibiotics for apparent cellulitis of the left lower extremity and it apparently got better. She had the syncopal episode and had one episode of loose bowel movement which did not recur. She denies headache or dizziness, no chest pain or palpitations, no fever or chills, no blurring of vision, no cough or rhinorrhea, no dysphagia, no abdominal pain, no dysuria. She initially came in with leukocytosis which has now resolved. She also has some pain and swelling of the left leg, and she denies trauma to the leg, no insect bites, no soaking of feet in water. Infectious diseases consult is requested to further evaluate and manage. Review of Systems - Review of Systems All systems: reviewed and no additional remarkable complaints except (as per HPI ) Past Patient History - Infectious Disease Hx of Infectious Diseases: None - Past Social History Smoking Status: Current Some Days Smoker - CARDIAC Hx Cardiac Disorders: Yes Hx Hypercholesterolemia: Yes Hx Hypertension: Yes - PULMONARY Hx Respiratory Disorders: Yes (SMOKES CIGARETTES PK A WEEK) - NEUROLOGICAL Hx Neurological Disorder: Yes HX Cerebrovascular Accident: Yes (09/30/2017) Hx Dizziness: Yes (SYNCOPE 03-07-18) Hx Transient Ischemic Attacks (TIA): Yes - HEENT Hx HEENT Problems: No - RENAL Hx Chronic Kidney Disease: No - ENDOCRINE/METABOLIC Hx Endocrine Disorders: No - HEMATOLOGICAL/ONCOLOGICAL Hx Blood Disorders: No - INTEGUMENTARY Hx Dermatological Problems: Yes Other/Comment: 03-07-18 LEFT LEG CELLULITIS-EDEMA +2 REDNESS,ERYTHEMA. - MUSCULOSKELETAL/RHEUMATOLOGICAL Hx Musculoskeletal Disorders: Yes Hx Falls: No Hx Osteoporosis: Yes - GASTROINTESTINAL Hx Gastrointestinal Disorders: Yes (ESOPHAGITIS) - GENITOURINARY/GYNECOLOGICAL Hx Genitourinary Disorders: No - PSYCHIATRIC Hx Psychophysiologic Disorder: Yes (ETOH USE EVERY WEEKEND-DRINKS BEER) Hx Substance Use: No - SURGICAL HISTORY Hx Surgeries: Yes (RIGHT OVARY REMOVED,LEFT HIP-PINS AND RODS.) Hx Orthopedic Surgery: Yes - ANESTHESIA Hx Anesthesia: Yes Hx Anesthesia Reactions: No Meds Allergies/Adverse Reactions: Allergies Allergy/AdvReac Type Severity Reaction Status Date / Time Penicillins Allergy RASH Verified 03/07/18 16:55 - Medications Medications: Current Medications Aspirin (Ecotrin) 81 mg PO DAILY [facility] Atorvastatin Calcium (Lipitor) 10 mg PO DAILY [facility] Last Admin: 03/07/18 14:46 Dose: 10 mg Clopidogrel Bisulfate (Plavix) 75 mg PO DAILY [facility] Last Admin: 03/07/18 14:46 Dose: Not Given Famotidine (Pepcid) 20 mg PO DAILY [facility] Last Admin: 03/07/18 14:47 Dose: Not Given Dextrose/Sodium Chloride (Dextrose 5%/0.45% Ns 1000 Ml) 1,000 mls @ 75 mls/hr IV .[id number] [facility] Last Admin: 03/08/18 05:06 Dose: 75 mls/hr Vancomycin HCl (Vancomycin 1gm) 1 gm in 250 mls @ 167 mls/hr IVPB Q12H [facility] PRN Reason: Protocol Last Admin: 03/08/18 05:06 Dose: 167 mls/hr Lisinopril (Zestril) 20 mg PO DAILY [facility] Last Admin: 03/07/18 14:47 Dose: Not Given Physical Exam - Constitutional Appears: Non-toxic, Chronically Ill - Head Exam Head Exam: NORMAL INSPECTION - ENT Exam ENT Exam: Mucous Membranes Moist - Neck Exam Neck exam: Negative for: Meningismus - Respiratory Exam Respiratory Exam: Decreased Breath Sounds - Cardiovascular Exam Cardiovascular Exam: +S1, +S2 - GI/Abdominal Exam GI & Abdominal Exam: Soft. absent: Tenderness - Extremities Exam Additional comments: left leg with some erythema and swelling, no open wounds, mild tenderness Results - Vital Signs Recent Vital Signs: Last Vital Signs Temp 98 F 03/08/18 06:00 Pulse 78 03/08/18 06:00 Resp 20 03/08/18 06:00 BP 144/67 03/08/18 06:00 Pulse Ox 98 03/08/18 06:00 - Labs Result Diagrams: 03/08/18 06:00 03/08/18 06:00 Labs: Laboratory Results - last 24 hr 03/07/18 03/08/18 03/08/18 13:40 06:00 06:00 WBC 7.7 D RBC 4.18 Hgb 13.4 D Hct 39.1 MCV 93.5 MCH 32.1 MCHC 34.3 RDW 14.0 Plt Count 182 MPV 9.6 Gran % 60.5 Lymph % (Auto) 32.1 [place] % (Auto) 5.3 Eos % (Auto) 1.7 Baso % (Auto) 0.4 Gran # 4.65 Lymph # (Auto) 2.5 [place] # (Auto) 0.4 Eos # (Auto) 0.1 Baso # (Auto) 0.03 Sodium 140 Potassium 4.3 Chloride 109 H Carbon Dioxide 22 Anion Gap 14 BUN 17 Creatinine 0.8 Est GFR ( Amer) > 60 Est GFR (Non-Af Amer) > 60 Random Glucose 93 Calcium 9.1 Phosphorus 2.8 Magnesium 1.9 Total Bilirubin 0.6 AST 19 ALT 30 Alkaline Phosphatase 85 Total Protein 6.2 Albumin 3.6 Globulin 2.6 Albumin/Globulin Ratio 1.4 Triglycerides 94 Cholesterol 111 L LDL Cholesterol Direct 51 HDL Cholesterol 37 TSH 3rd Generation Urine Color Yellow Urine Appearance Clear Urine pH 7.0 Ur Specific Rodney 1.010 Urine Protein Negative Urine Glucose (UA) Negative Urine Ketones Negative Urine Blood Negative Urine Nitrate Negative Urine Bilirubin Negative Urine Urobilinogen 0.2 Ur Leukocyte Esterase Negative 03/08/18 06:00 WBC RBC Hgb Hct MCV MCH MCHC RDW Plt Count MPV Gran % Lymph % (Auto) [place] % (Auto) Eos % (Auto) Baso % (Auto) Gran # Lymph # (Auto) [place] # (Auto) Eos # (Auto) Baso # (Auto) Sodium Potassium Chloride Carbon Dioxide Anion Gap BUN Creatinine Est GFR ( Amer) Est GFR (Non-Af Amer) Random Glucose Calcium Phosphorus Magnesium Total Bilirubin AST ALT Alkaline Phosphatase Total Protein Albumin Globulin Albumin/Globulin Ratio Triglycerides Cholesterol LDL Cholesterol Direct HDL Cholesterol TSH 3rd Generation 0.71 Urine Color Urine Appearance Urine pH Ur Specific Rodney Urine Protein Urine Glucose (UA) Urine Ketones Urine Blood Urine Nitrate Urine Bilirubin Urine Urobilinogen Ur Leukocyte Esterase Assessment & Plan - Assessment and Plan (Free Text) Plan: Assessment systemic inflammatory response syndrome probably due to syncopal episode, etiology to be determined consider left leg cellulitis CVA HTN Plan started on Vancomycin and will monitor clinical response follow up syncope work up results will monitor clinically
--- NOTE | 2018-03-08 17:49 | CARD ---
APPROVED REPORT Date of service: 03/08/2018 EXAM: Two-dimensional and M-mode echocardiogram with Doppler and color Doppler. INDICATION LV Function:SystolicDiastolic Syncope 2D DIMENSIONS Left Atrium (2D)2.9 (1.6-4.0cm)IVSd1.2 (0.7-1.1cm) LVDd4.7 (3.9-5.9cm)PWd1.1 (0.7-1.1cm) LVDs3.1 (2.5-4.0cm)FS (%) 33.4 % LVEF (%)62.2 (>50%) M-Mode DIMENSIONS Aortic Root2.80 (2.2-3.7cm)Aortic Cusp Exc.1.70 (1.5-2.0cm) Aortic Valve AoV Peak [place]557.0cm/Symone Peak GR.7mmHg Mitral Valve MV E Cfafekel08.7cm/sMV A Wscgmhva52.2cm/sE/A ratio1.2 TDI E/Lateral E'0.0E/Medial E'0.0 Tricuspid Valve TR Peak [id number]/sRAP [id number] Peak Gr.25mmHg [id number] LEFT VENTRICLE The left ventricle is normal size. There is borderline concentric left ventricular hypertrophy. The left ventricular function is normal.Ef-60-65% There is normal LV segmental wall motion. The left ventricular diastolic function is normal. No left ventricle thrombus noted on this study. There is no ventricular septal defect visualized. There is no left ventricular aneurysm. There is no mass noted in the left ventricle. RIGHT VENTRICLE The right ventricle is normal size. There is normal right ventricular wall thickness. The right ventricular systolic function is normal. ATRIA The left atrium size is normal. The right atrium size is normal. The interatrial septum is intact with no evidence for an atrial septal defect. AORTIC VALVE The aortic valve is thickened but opens well. No aortic regurgitation is present. There is no aortic valvular stenosis. There is no aortic valvular vegetation. MITRAL VALVE The mitral valve is thickened but opens well. Mitral regurgitation is mild. There is no mitral valve stenosis. There is no evidence of mitral valve prolapse. TRICUSPID VALVE The tricuspid valve leaflets are thickened , but open well. There is mild tricuspid regurgitation.RVSP-35 mm of Hg. There is no tricuspid valve stenosis. There is no tricuspid valve prolapse or vegetation. PULMONIC VALVE The pulmonary valve is normal in structure. There is no pulmonic valvular regurgitation. There is no pulmonic valvular stenosis. GREAT VESSELS The aortic root is normal in size. The ascending aorta is normal in size. The pulmonary artery is normal. The IVC is normal in size and collapses >50% with inspiration. PERICARDIAL EFFUSION There is no pleural effusion. There is no pericardial effusion. <Conclusion> Normal chamber Size. EF-60--65%. Mild MR/ Mild TR. RVSP-35 mmof Hg.
--- NOTE | 2018-03-08 18:17 | PN ---
DATE: 03/08/2018 SUBJECTIVE: The patient is 62 years old, seen and examined, doing well. No nausea, vomiting. No diarrhea. No abdominal pain. Her left leg swelling is significantly improved. No chest pain. No shortness of breath. PHYSICAL EXAMINATION: GENERAL: She is awake, alert, oriented, communicative. VITAL SIGNS: She is afebrile, pulse 60, respirations 18, blood pressure 155/87. LUNGS: Bilateral fair airflow. No rhonchi or crackle. HEART: S1 and S2 audible. ABDOMEN: Soft. Nontender. No rebound. No guarding. NEUROLOGICAL: She is awake, alert, oriented, able to communicate. LABORATORY EXAM: Sodium 140, potassium 4.3, chloride 109, CO2 of 22, BUN 17, creatinine 0.8, blood sugar 193. LFTs are within normal limit. Urinalysis is unremarkable. The left leg redness and swelling has significantly improved. ASSESSMENT: 1. Status post near syncope secondary to large bowel movement, probably food poisoning or viral. 2. Dehydration, improved. Leukocytosis, improved. 3. History of recent cerebrovascular accident. PLAN: We will continue the patient on aspirin, statin. She is on Plavix, we will continue that. She is vancomycin. Awaiting arterial Doppler results. Awaiting Dr. Son Oconnell's evaluation. Once the results are available, we will make discharge plan. Inderjit Zuniga MD
[2018-03-09] MEDS: Vancomycin 1gm in NS 250ml 1 GM/250 ML BAG IVPB SCH (06:07)
--- NOTE | 2018-03-09 09:33 | CP.PCM.PN ---
Subjective - Date & Time of Evaluation Date of Evaluation: 03/09/18 Time of Evaluation: 06:25 - Subjective Subjective: Awake, alert, wanted to go home, sitting in bed,no distress Reason for consultation and follow up: Cardiac evaluation for syncopal episodes , history of CVA 09/2017, history of afib during colonoscopy,hypertension Seen and examined by me and Dr. Gonzalez Objective - Vital Signs/Intake and Output Vital Signs (last 24 hours): Temp Pulse Resp BP Pulse Ox 97.5 F L 70 18 155/83 H 98 03/09/18 06:00 03/09/18 06:00 03/09/18 06:00 03/09/18 06:00 03/08/18 06:00 Intake and Output: 03/09/18 03/09/18 06:59 18:59 Intake Total 730 Output Total 0 Balance 730 - Medications Medications: Current Medications Aspirin (Ecotrin) 81 mg PO DAILY [facility] Last Admin: 03/08/18 10:36 Dose: 81 mg Atorvastatin Calcium (Lipitor) 10 mg PO DAILY [facility] Last Admin: 03/08/18 10:35 Dose: 10 mg Clopidogrel Bisulfate (Plavix) 75 mg PO DAILY [facility] Last Admin: 03/08/18 10:40 Dose: 75 mg Famotidine (Pepcid) 20 mg PO DAILY [facility] Last Admin: 03/08/18 10:36 Dose: 20 mg Vancomycin HCl (Vancomycin 1gm) 1 gm in 250 mls @ 167 mls/hr IVPB Q12H [facility] PRN Reason: Protocol Last Admin: 03/09/18 06:07 Dose: 167 mls/hr Lisinopril (Zestril) 20 mg PO DAILY [facility] Last Admin: 03/08/18 10:36 Dose: 20 mg - Labs Labs: 03/08/18 06:00 03/08/18 06:00 Assessment and Plan - Assessment and Plan (Free Text) Assessment: A 62 year old female who came in to the ER due syncopal episode.History of CVA ,TIA, history of afib during colonoscopy,hypertension,hip replacement, current smoker,current alcohol abuse. She was on antibiotics for leg cellulitis and was also taking Lasix.Prior to admission, she had a large bowel movement with feeling of cold and clammy and weak. Syncopal maybe due to orthostatic hypotension and or oral dehydration. Orthostatic vital signs normal. Oral hydration. Plan: Orthostatic vital signs normal Echo done LVEF 65%, mild TR/MR Cardiac status stable Wanted to go home Leg cellulitis improved Awaiting LE doppler studies report Encouraged fluid intake Discharge planning Out patient Stress Test Will follow up Plan and treatment discussed with Dr. Gonzalez
--- NOTE | 2018-03-09 11:13 | PN ---
DATE: 03/09/2018 SUBJECTIVE: The patient is seen earlier today, 271, bed 2. She says her foot is improving. She is tolerating the antibiotics. She is doing much better. PHYSICAL EXAMINATION: VITAL SIGNS: On exam, temperature is 97, blood pressure is 155/80, respiratory rate of 18, heart rate of 64. HEENT: Examination of HEENT is unremarkable. NECK: Supple. LUNGS: Have decreased breath sounds. HEART: Normal S1, S2. ABDOMEN: Soft, nontender. LABORATORY DATA: Laboratory examination reveals a white count of 7.7, hemoglobin of 13, platelets of 182, BUN of 17, creatinine of 0.8. Urinalysis is noted. Microbiology reveals the blood cultures are negative. ASSESSMENT AND PLAN: A 62-year-old female seen earlier today in 271, bed 2 with history of cerebrovascular accident, hypertension and who is ALLERGIC TO PENICILLIN, who was seen by Dr. Johansen , who was admitted with syncope and feeling weak and had erythema and edema of the left leg which is resolving, although, still erythematous. No overt evidence of infection, but has diffuse erythema. Although the urinalysis is completely negative, she did have leukocytosis of 16,079 which is resolved. Negative blood cultures and she denied syncopal episode. She did not have any fevers , she only had leukocytosis, one criteria. No tachycardia, no fever, only leukocytosis with questionable left leg and left foot cellulitis and edema in a patient with cerebrovascular accident, hypertension, on vancomycin, appears to be improving. Etiology of this is not clear. She did have an ultrasound of lower extremities, results are not available. We will follow with you. Endy Solomon MD
[2018-03-09 12:24] VITALS: BP 168/93; RESP 21; TEMP 98.1
[2018-03-09 12:39] VITALS: PULSE 80
--- NOTE | 2018-03-09 23:48 | US ---
PROCEDURE: Lower extremity NELL exam HISTORY: Peripheral vascular disease with pain and claudication. PHYSICIAN(S): Son Oconnell MD. FINDINGS: The resting NELL's are severely abnormal: Right, 0.48 and left, 0.36 The brachial systolic pressures are symmetric. There is an 80-90 mm difference between the arm high thigh pressures. The PVR waveforms are severely blunted at all levels. Findings are consistent with aortoiliac disease. . IMPRESSION: 1. Severely abnormal ABIs at rest. 2. Aortoiliac disease 3. If clinically indicated, further evaluation with CTA, MRA, or conventional arteriography can be considered.
--- NOTE | 2018-03-10 00:15 | US ---
PROCEDURE: Left lower extremity venous US HISTORY: Leg pain and swelling. Evaluate for DVT. PHYSICIAN(S): Son Oconnell MD. TECHNIQUE: Duplex sonography and color-flow Doppler with graded compression were used to evaluate the deep venous system of the left lower extremity. FINDINGS: The visualized deep venous system of the left lower extremity is sonographically normal and compressible. Normal wave forms and augmentation are seen. There is no sonographic evidence for deep venous thrombosis in the visualized segments of the left lower extremity. IMPRESSION: 1. No sonographic evidence for deep venous thrombosis in the visualized segments of the left lower extremity.
--- NOTE | 2018-03-10 04:42 | DS ---
HISTORY OF PRESENT ILLNESS: The patient is 62 years old, seen and examined, doing better, no dizziness, no weakness, eating and tolerating, ambulating without any problem. Her left leg swelling and redness have almost gone. PHYSICAL EXAMINATION: VITAL SIGNS: She is afebrile, pulse 77, respirations 21, blood pressure 168/93. LUNGS: Bilateral fair airflow. No rhonchi or crackle. HEART: S1 and S2 audible. ABDOMEN: Soft. Nontender. No rebound. No guarding. NEUROLOGICAL: The patient is awake, alert, oriented, able to communicate. LABORATORY EXAM: Echocardiogram shows normal chamber sizes, ejection fraction of 60-65%. Mild tricuspid regurg. ASSESSMENT: 1. Status post syncope, probably secondary to viral syndrome with explosive diarrhea, hence acute fluid loss. 2. Left leg cellulitis, etiology is still unclear. Leg arterial and venous Doppler is still pending. 3. History of recent cerebrovascular accident. 4. Hypertension. 5. Hyperlipidemia. 6. Active smoker. The patient states she has been smoking 2 packs per day for more than 35 years. PLAN: The patient is going to be discharged home today. I will discontinue Norvasc since can cause leg edema. I have started her on losartan 125 one tablet daily. She will resume her aspirin, Plavix. We will discontinue lisinopril. Her syncope could be secondary to dehydration because recently she was started on Lasix to reduce her left leg swelling. So plan is she will be discharged. She will follow up with Dr. Son Oconnell on Sunday. She also has made appointment as outpatient. I will follow up the patient as outpatient. Inderjit Zuniga MD
== END 2018-03-09 14:17 | disposition home or self-care (01) ==
LOC: ED 10:58 → ERH 13:12 → 2RSO 16:24
PROVIDERS: ADMIT Internal Medicine; ATTEND Internal Medicine
DX: E86.0 Dehydration (principal); R55 Syncope and collapse; L03.116 Cellulitis of left lower limb; I10 Essential (primary) hypertension; R19.7 Diarrhea, unspecified; T36.95XA Adverse effect of unspecified systemic antibiotic, initial encounter; I48.91 Unspecified atrial fibrillation; E78.5 Hyperlipidemia, unspecified; F17.200 Nicotine dependence, unspecified, uncomplicated; E78.00 Pure hypercholesterolemia, unspecified; Z82.49 Family history of ischemic heart disease and other diseases of the circulatory system; M81.0 Age-related osteoporosis without current pathological fracture; F10.10 Alcohol abuse, uncomplicated; Z96.649 Presence of unspecified artificial hip joint; Z88.0 Allergy status to penicillin; Z79.82 Long term (current) use of aspirin; Z86.73 Personal history of transient ischemic attack (TIA), and cerebral infarction without residual deficits; Z79.02 Long term (current) use of antithrombotics/antiplatelets
CPT/HCPCS: 36415; 70450; 71045; 80053; 80061; 81003; 82550; 83036; 83690; 83735; 84100; 84443; 84484; 85025; 87040; 93005; 93306; 93923; 93971; 99285; G0378; J7030; J7042

== ENCOUNTER 2018-04-04 06:26 | Day surgery (SDC) | payer BC ==
[2018-03-29 14:04] VITALS: BMI 21.7
[2018-04-04] MEDS ORDERED: Iodixanol 320 MG/ML 200 ML BOTTLE IV ONE (06:52)
[2018-04-04] MEDS ORDERED: Lidocaine PF 2% (5 ml) Inj (For Cardiac Arrhy) ONE (06:52)
[2018-04-04] MEDS ORDERED: Nitroglycerin 50mg in D5W 50 MG/250 ML BOTTLE IV ONE (06:52)
[2018-04-04] MEDS ORDERED: Iodixanol 320 MG/ML 100 ML BOTTLE IV ONE ×2 (06:52→09:10)
[2018-04-04 07:35] LABS: BASO # 0.03 K/mm3 (0.0-2.0); BASO % 0.5 % (0.0-3.0); EOS # 0.2 (0.0-0.7); EOS % 2.9 % (1.5-5.0); GRAN # 3.8 (1.4-6.5); GRAN % 57.4 % (50.0-68.0); HEMOGLOBIN 15.4 g/dL (12.0-16.0); LYMPH # 2.1 (1.2-3.4); LYMPH % 32.1 % (22.0-35.0); MEAN CELL VOLUME 91.4 fl (80.0-105.0); MEAN CORPUSCULAR HEMOGLOBIN 32.3 pg (25.0-35.0); MEAN CORPUSCULAR HGB CONC 35.3 g/dl (31.0-37.0); MEAN PLATELET VOLUME 9.2 fl (7.0-11.0); MONO # 0.5 (0.1-0.6); MONO % 7.1 % (1.0-6.0); RBC 4.77 10^6/uL (3.5-6.1); WHITE BLOOD COUNT 6.6 10^3/ul (4.5-11.0)
[2018-04-04 07:44] LABS: INR 0.95; PARTIAL THROMBOPLASTIN TIME 30.4 Seconds (25.1-36.5); PROTHROMBIN TIME 10.9 SECONDS (9.4-12.5)
[2018-04-04 07:45] LABS: BLOOD UREA NITROGEN 16 mg/dL (7-21); CALCIUM 9.6 mg/dL (8.4-10.5); GFR NON-AFRICAN AMERICAN > 60
[2018-04-04] MEDS ORDERED: Midazolam 2 MG/2 ML VIAL ONE ×2 (08:24→08:38)
[2018-04-04] MEDS ORDERED: DiphenhydrAMINE 50 mg/ml Inj ONE (08:30)
[2018-04-04] MEDS ORDERED: Oxycodone/Acetaminophen 5/325 mg Tab PO PRN (11:20)
[2018-04-04] MEDS: Sodium Chloride 0.45% 1,000 ML IV SCH (13:15)
--- NOTE | 2018-04-04 18:17 | VASCULAR ---
PROCEDURE: 1. Abdominal aortogram bilateral lower extremity runoff with bilateral punctures. 2. Kissing bilateral common iliac artery stents. 3. Bilateral external iliac artery angioplasty and stent placement. . HISTORY: Severe peripheral vascular disease pre recently quit smoking. Severe lifestyle limiting bilateral claudication. Advanced aortoiliac disease. PHYSICIAN(S): Son Oconnell M.D. TECHNIQUE: The relative risks and indications of the procedure were explained to the patient and her sister and consent obtained. The patient was hydrated prior to the procedure and the appropriate labs drawn. The patient was placed supine on the arteriogram table and both groins prepped and draped in the usual sterile fashion. Conscious sedation monitoring were provided throughout the procedure by a nurse. Under ultrasound guidance, the right common femoral artery was punctured with a micropuncture set inferiorly. A 4 [place] dilator was placed. The heavily calcified chronically occluded right external iliac artery was crossed with various 5 [place] catheters and guidewires. Re-entry into the calcified left common iliac artery was difficult. Eventually an out back re-entry catheter was needed. 0.035 support wire was placed in the thoracic aorta. An abdominal and pelvic arteriogram with bilateral runoff was performed. The right common external iliac arteries were dilated with a 6 mm balloon. Attempts at crossing the chronic left common iliac artery occlusion in an antegrade direction were unsuccessful. Subsequently the left common femoral artery was punctured under ultrasound guidance. Once again the left external iliac artery chronic occlusion was crossed with 5 [place] catheter and various guidewires. It was very difficult matching the antegrade and retrograde approaches. A knee snare was attempted but unsuccessful. Subsequently the out back catheter was attempted at the left common iliac artery origin. It was successful. Bilateral 0.035 Amplatz support wire for placed. Bilateral 7 [place], 25 cm sheath were placed. The distal abdominal aorta and common iliac arteries were dilated with 8 mm balloons in a kissing fashion. The external iliac arteries were dilated with a 6 mm balloon. Kissing 8 mm by 80 mm self expanding stents were placed at the aortic bifurcation. In a coaxial fashion, bilateral 7 mm x 120 mm self expanding stents were placed across the external iliac arteries. Faint extravasation was seen in the mid left external iliac artery. An 8 mm x 5 cm via Bon stent graft was placed and extravasation treated. The patient was stable without hypotension or pain. Completion angiograms were obtained. The sheaths were removed and hemostasis obtained with manual pressure. FINDINGS: Extensive vascular calcifications noted. There are single renal arteries bilaterally which are patent. There is severe disease of the aortic bifurcation and iliac arteries. The right common iliac artery is severely disease. The right external iliac artery is chronically occluded. There is reconstitution of the right common femoral artery at the inguinal ligament. The left common iliac artery and external iliac artery are calcified chronically occluded. There is reconstitution of the left common femoral artery at the inguinal ligament. The profunda femoral arteries are patent proximally. The superficial femoral arteries are occluded bilaterally at their origins. IMPRESSION: 1. Successful bilateral kissing common iliac artery angioplasty and stent placement 2. Successful bilateral external iliac artery angioplasty and stent placement 3. Bilateral SFA occlusions.
[2018-04-04 19:58] VITALS: RESP 18
--- NOTE | 2018-04-04 21:13 | HP ---
Copied To: Inderjit Zuniga MD Attending MD: Inderjit Zuniga MD DATE OF EXAM: 04/04/2018 HISTORY OF PRESENT ILLNESS: The patient is 62 years old, known to me from multiple previous admissions. The patient lately has been having left leg erythema, pain and swelling. She was given antibiotic and diuretic as outpatient with no significant relief, so the patient underwent angiography that shows bilateral iliac and SFA occlusion. So, the patient was electively brought in to have angioplasty done. PAST MEDICAL HISTORY: She has significant past medical history of: 1. Hypertension. 2. Hyperlipidemia. 3. Heavy active smoker. 4. Recent myocardial stress test on 03/20 and that was negative. 5. History of TIA and she was admitted on 03/07 with complete resolution of her residual weakness. ALLERGIES: SHE IS ALLERGIC TO PENICILLIN. MEDICATIONS AT HOME: She is on aspirin 81 daily. She is on Chantix. She is on Lipitor 40 mg daily. She is on Plavix 75 daily, losartan 100 mg daily, and Zantac. SOCIAL HISTORY: She is currently on Chantix and smoked more than 15 years and socially drinks. PHYSICAL EXAMINATION GENERAL: She is awake, alert, oriented, communicative. VITAL SIGNS: She is afebrile, pulse 79, respirations 16, blood pressure 131/83. LUNGS: Bilateral good airflow. No rhonchi or crackle. HEART: S1 and S2 audible. ABDOMEN: Soft, nontender. No rebound. No guarding. NEUROLOGIC: The patient is awake, alert, oriented, communicative. LABORATORY DATA: WBC 6.6, hemoglobin 15, hematocrit 43, platelets 157. PT 10.9 and INR 0.95. CMP: Sodium 136, potassium 4.1, chloride 97, CO2 of 28, BUN 16, creatinine 0.7, blood sugar of 89. ASSESSMENT: 1. Bilateral iliac and superficial femoral artery stenosis, status post angioplasty. 2. Hypertension. 3. Hyperlipidemia. 4. Active smoker. PLAN: The patient will resume her medication including statin. She will be started on lisinopril. She is on Plavix. I will continue that. I will continue her on analgesic. We will follow up the patient. Inderjit Zuniga MD
[2018-04-05] MEDS: Sodium Chloride 0.45% 1,000 ML IV SCH (01:43)
[2018-04-05 06:09] VITALS: O2SAT 95
[2018-04-05 06:41] LABS: HEMOGLOBIN 13.1 g/dL (12.0-16.0); MEAN CELL VOLUME 89.5 fl (80.0-105.0); MEAN CORPUSCULAR HEMOGLOBIN 31.2 pg (25.0-35.0); MEAN CORPUSCULAR HGB CONC 34.8 g/dl (31.0-37.0); MEAN PLATELET VOLUME 9.4 fl (7.0-11.0); RBC 4.2 10^6/uL (3.5-6.1); RED CELL DISTRIBUTION WIDTH 12.9 % (11.5-14.5); WHITE BLOOD COUNT 9.2 10^3/ul (4.5-11.0)
[2018-04-05 06:58] LABS: BLOOD UREA NITROGEN 16 mg/dL (7-21); CALCIUM 8.6 mg/dL (8.4-10.5); GFR NON-AFRICAN AMERICAN > 60
[2018-04-05] MEDS ORDERED: Non Formulary Medication (Losartan/Hydrochlorothiazide [Losartan-Hctz 100-25 Mg Tab] 1 TAB PO SCH (10:00)
[2018-04-05] MEDS ORDERED: Non Formulary Medication (Ranitidine Hcl [Zantac] 150 MG) PO SCH (10:00)
[2018-04-05] MEDS ORDERED: Potassium Chloride 20 mEq ER Tab PO ONE (11:49)
[2018-04-05 11:56] VITALS: BP 129/73; PULSE 81; TEMP 98
--- NOTE | 2018-04-05 12:02 | DS ---
Copied To: Inderjit Zuniga MD Attending MD: Inderjit Zuniga MD HISTORY OF PRESENT ILLNESS: The patient is 62-year-old female, seen and examined, had angioplasty done yesterday, doing well. No nausea or vomiting. No diarrhea. No dizziness. Eating and tolerating. PHYSICAL EXAMINATION: VITAL SIGNS: She is afebrile, pulse 91, respirations 18, blood pressure 131/86. LUNGS: Bilateral fair airflow. No rhonchi or crackle. HEART: S1 and S2 audible. ABDOMEN: Soft. Nontender. No rebound. No guarding. NEUROLOGICAL: She is awake, alert, oriented, communicative. EXTREMITIES: Bilateral leg, no edema. No erythema. Left leg has normal color now. LABORATORY EXAM: WBC is 9.2, hemoglobin 13, hematocrit 37.6, platelet of 126. PT 10.9, INR 0.95. Chemistry: Sodium 132, potassium 3.4, chloride 96, CO2 of 26, BUN 16, creatinine 0.8, blood sugar of 108. ASSESSMENT: 1. Bilateral common iliac artery angioplasty and stent placement. 2. Bilateral external iliac artery angioplasty and stent placement. 3. Status post cerebrovascular accident. 4. Hypertension. 5. Hyperlipidemia. 6. Nicotine addiction. PLAN: The patient will be given one dose of K-Dur 20 mEq stat. She will be discharged today since she is hemodynamically and medically stable. She will be discharged today on her medications that include losartan 100 mg daily, aspirin 81 daily. She is on hydrochlorothiazide 25 mg daily. She is on atorvastatin 40 mg daily and Plavix 75 daily. She will follow up in the office in a week. Inderjit Zuniga MD
== END 2018-04-05 14:46 | disposition home or self-care (01) ==
LOC: SDSVAS 06:26 → 2RSO 13:02 → SDSVAS 04-05 14:46
PROVIDERS: ATTEND Radiology Vascular & Interventional Radiology
DX: I74.5 Embolism and thrombosis of iliac artery (principal); I70.213 Atherosclerosis of native arteries of extremities with intermittent claudication, bilateral legs; I10 Essential (primary) hypertension; E78.5 Hyperlipidemia, unspecified; Z86.73 Personal history of transient ischemic attack (TIA), and cerebral infarction without residual deficits; Z88.0 Allergy status to penicillin; Z79.82 Long term (current) use of aspirin; Z87.891 Personal history of nicotine dependence
CPT/HCPCS: 36415 ×2; 37221; 37223; 75630; 80048 ×2; 85025; 85027; 85610; 85730; 99152; 99153; C1725 ×4; C1760; C1769 ×7; C1876 ×2; C1885; C1887 ×2; C1894 ×2; C2617; J0690; J1200; J1644 ×2; J1940; J2250; J2405 ×2; J3010; J7030 ×2; Q9966; Q9967